=== PATIENT | female | born 1955 | race Caucasian/White ===

== ENCOUNTER 2022-03-04 00:44 | Emergency (ER) | payer BC, OTHER ==
[2022-03-04] MEDS ORDERED: Ketorolac 10 MG Tab PO ONE (01:01)
[2022-03-04] MEDS ORDERED: Acetaminophen/oxyCODONE 325-5 MG Tab PO ONE (01:01)
[2022-03-04] MEDS ORDERED: Cyclobenzaprine 10 MG Tab PO ONE (01:01)
[2022-03-04 02:05] VITALS: BP 140/71; PULSE 66
== END 2022-03-04 02:04 | disposition home or self-care (01) ==
LOC: MW.ED 00:44
DX: M54.50 Low back pain, unspecified (principal); Z88.8 Allergy status to other drugs, medicaments and biological substances
CPT/HCPCS: 72131; 99283; A9270